=== PATIENT | female | born 1980 | race Caucasian/White ===

== ENCOUNTER → 2018-07-09 10:49 | Outpatient (CLI) | payer OTHER, SELFPAY | PROVIDERS: Visit Provider Physician Assistant | DX: R52 Pain, unspecified (principal) | CPT/HCPCS: 87086 ==

== ENCOUNTER → 2019-07-06 08:57 | Outpatient (CLI) | payer OTHER, SELFPAY | PROVIDERS: Visit Provider Physician Assistant | DX: N30.01 Acute cystitis with hematuria (principal) | CPT/HCPCS: 87077; 87086; 87147 ==

== ENCOUNTER → 2020-05-13 10:22 | Outpatient (CLI) | payer OTHER, SELFPAY ==
[2020-05-13 12:21] LABS: Add Manual Diff / Slide Review NO; Basophils Absolute Auto 0 /uL (0-100); Basophils Percent Auto 0.9 % (0-2); Eosinophils Absolute Auto 100 /uL (0-450); Eosinophils Percent Auto 2.7 % (2-4); Hematocrit 38.4 % (36-46); Hemoglobin 13.3 g/dL (12.0-16.0); Lymphocytes Absolute Auto 900 /uL (1100-4500); Lymphocytes Percent Auto 19.2 % (25-40); Mean Corpuscular HGB Conc 34.5 % (30-36); Mean Corpuscular Hemoglobin 30.4 PG (26-34); Mean Corpuscular Volume 88.1 fL (80-100); Monocytes Absolute Auto 400 /uL (0-900); Monocytes Percent Auto 9.3 % (3-14); Neutrophils Absolute Auto 3100 /uL (1500-7000); Neutrophils Percent Auto 67.9 % (50-75); Platelet Count 189 X10^3/uL (150-400); Red Blood Cell Count 4.36 X10^6/uL (4.0-5.2); Red Cell Distribution Width 14.5 % (11.6-14.8); White Blood Cell Count 4.6 X10^3/uL (4.5-11.0)
[2020-05-13 14:30] LABS: TSH w/ Reflex to FT4 0.74 uIU/mL (0.47-4.68)
[2020-05-13 14:50] LABS: Alanine Aminotransferase 13 IU/L (<35); Albumin 4.1 g/dL (3.5-5.0); Albumin Globulin Ratio 1.6 (1.0-2.8); Alkaline Phosphatase 46 U/L (38-126); Aspartate Aminotransferase 20 IU/L (14-36); BUN Creatinine Ratio 23.2 (6-22); Bilirubin Total 0.5 mg/dL (0.2-1.3); Blood Urea Nitrogen 16 mg/dL (7-17); Calcium 8.8 mg/dL (8.4-10.2); Carbon Dioxide 22 mmol/L (22-32); Chloride 104 mmol/L (98-107); Cholesterol 159 mg/dL (140-199); Estimated Glomerular Filt Rate > 60.0 mL/min (>60); Globulin 2.5 g/dL (1.7-4.1); Glucose 84 mg/dL (70-100); HDL Cholesterol 93 mg/dL (40-60); HEMOLYSIS < 15 (0-50); LDL Cholesterol Calculated 59 mg/dL (<100); Potassium 4.5 mmol/L (3.4-5.1); Sodium 135 mmol/L (137-145); Total Protein 6.6 g/dL (6.3-8.2); Triglycerides 37 mg/dL (35-150)
== END ==
PROVIDERS: PCP Family Medicine; Referring Provider Family Medicine; Visit Provider Family Medicine
DX: Z00.00 Encounter for general adult medical examination without abnormal findings (principal)
CPT/HCPCS: 36415; 80053; 80061; 84443; 85025

== ENCOUNTER → 2020-05-22 11:13 | Outpatient (CLI) | payer OTHER, SELFPAY ==
--- NOTE | 2020-05-22 11:14 | DI.US.S_ITS ---
PROCEDURE: US PELVIC COMPLETE INDICATIONS: EVALUATE UTERUS AND OVARIES TECHNIQUE: Real-time scanning was performed of the pelvic organs, with image documentation. Additional endovaginal scanning was necessary due to incomplete visualization of the adnexal and endometrial structures by transabdominal scanning. COMPARISON: None. FINDINGS: Transabdominal scanning: Limited scanning through the kidneys shows no hydronephrosis. No pathologic free abdominal or pelvic fluid. Endovaginal scanning: Uterus: Uterus is normal in size at 8.3 x 4.8 x 5.3 cm. The endometrium measures 6.7 mm in combined thickness. 3 intramural fibroids, largest measuring up to 3 cm Ovaries: Ovary is normal measuring 3.8 x 2.1 x 2.1 cm on the right and 2.8 x 2.1 x 2.4 cm on the left. Bilateral follicular cysts. IMPRESSION: 3 intramural fibroids, largest measuring up to 3 cm. Dictated by: Lito Tariq [facility] Interpreted: Delilah Orellana MD on 05/22/2020 at 13:29 Approved by: Delilah Orellana M.D. on 05/22/2020 at 17:44
== END ==
PROVIDERS: PCP Family Medicine; Referring Provider Obstetrics & Gynecology; Visit Provider Obstetrics & Gynecology
DX: N94.6 Dysmenorrhea, unspecified (principal); D25.1 Intramural leiomyoma of uterus; N83.02 Follicular cyst of left ovary; N83.01 Follicular cyst of right ovary
CPT/HCPCS: 76830; 76856

== ENCOUNTER → 2020-06-16 13:33 | Outpatient (CLI) | payer OTHER, SELFPAY ==
[2020-06-18 19:13] LABS: COVID19 Sendout Not Detected (Not Detect)
== END ==
PROVIDERS: PCP Family Medicine; Visit Provider Physician Assistant
DX: Z01.818 Encounter for other preprocedural examination (principal)
CPT/HCPCS: 87635

== ENCOUNTER 2020-06-19 07:59 | Day surgery (SDC) | payer OTHER, SELFPAY ==
[2020-06-19] VITALS (8 sets, daily range): BP systolic 111–122; BP diastolic 67–78; PULSE 60–75; RESP 10–16; TEMP 36.5–36.8; O2SAT 99–100
--- NOTE | 2020-06-19 | PATH_ITS ---
[facility] Accession Number: [id number] . 01 Material submitted: . cervix - CERVICAL CONE . 01 Clinical history: . CERVICAL CONE; STITCH AT 12 O'CLOCK . 02 Diagnosis: Cervix, Cone Excision: Focal low-grade squamous intraepithelial neoplasia (TOÑITO-1). Changes consistent with prior procedure are also present. Active inflammation. Margins are free of intraepithelial neoplasia. No evidence of malignancy. [facility] 06/21/2020 0938 Local . 02 Electronically signed: . Shereen Raya MD, Pathologist NPI- [id number] . 01 Gross description: . Specimen A is received in formalin, labeled with patient identification and cervical cone; stitch at 12 o'clock. It consists of a 2.3 x 1.2 x 0.4 cm C-shaped and partial cervical cone with a black suture indicating 12 o'clock (per surgeon). The specimen consists of 12-9-6 o'clock. The ectocervical mucosa is pink-salinas, dull, and focally rough. The endocervical mucosa is inked orange, and the deep surface is inked blue. Sectioning reveals heterogeneously yellow to light brown cut surfaces. The entire specimen is submitted in four cassettes. . Summary of Sections: A1-A2 - 12 o'clock to 9 o'clock, three pieces each. A3-A4 - 9 o'clock to 6 o'clock, three pieces each. ([id number]) /[facility] 06/20/2020 1552 Local . 02 Pathologist provided ICD-10: N87.0 . 02 CPT . 782829 Performed at: 01 [facility] [address] [place] [address] [address], [place], [place] [id number] MD Veto Bae MD Phone: [phone] Performed at: 02 [facility] [id number] [place] [id number] MD Shereen Raya MD Phone: [phone]
[2020-06-19] MEDS: LACTATED RINGERS 1,000 ML 42 ML IV (08:30)
--- NOTE | 2020-06-19 08:36 | SUR.PREOP ---
pt states there is no way she is .
--- NOTE | 2020-06-19 09:34 | P.HPOB_ITS ---
History of Present Illness History of Present Illness Narrative: Michelle Del Toro is a 39 year old female with at least TOÑITO 1 of the cervix, but 1 area suspicious for high-grade ELIGIO. She is here for a LEEP cone biopsy of the cervix. [facility] Medical History (Updated 05/23/20 @ 22:15 by Paige Estrella) Anxiety (Chronic ~2018) Bee sting allergy (Acute) Chicken pox (Resolved ~1984) Depression (Chronic ~2018) Dysmenorrhea (Chronic) Encounter for well adult exam without abnormal findings (Acute) Heavy menstrual period (Chronic) Surgical History (Updated 05/23/20 @ 22:15 by Paige Estrella) Anesthesia (Resolved) [place] teeth extracted (Resolved ~2015) Social History household members: significant other Smoking Status: Never smoker second hand exposure: Yes (Childhood) alcohol intake: current Meds Home Medications and Allergies Home Medications Medication Instructions Recorded Confirmed Type epinephrine 0.3 mg/0.3 mL 0.3 mg IM Q5-15M PRN #2 each 05/10/20 06/15/20 Rx injection, auto-injector levonorgestrel-ethinyl estradiol 1 tab PO DAILY #84 tab 05/24/20 06/19/20 Rx 0.1 mg-20 mcg tablet Allergies Allergy/AdvReac Type Severity Reaction Status Date / Time No Known Drug Allergies Allergy Verified 06/19/20 08:27 Exam Vital Signs (past 8 hours): - 06/19/20 08:10 Temperature 97.7 F Pulse Rate 75 Respiratory Rate 16 Blood Pressure 116/68 Pulse Oximetry 99 Oxygen Delivery Method Room Air Narrative Exam Narrative: HEENT: No thyromegaly, no anterior cervical or supraclavicular lymphadenopathy. Lungs:Clear to auscultation bilaterally, no wheezes. Cardiovascular: Regular rate and rhythm, no murmurs, rubs, or gallops. Abdomen: No scars. No hepatosplenomegaly. No masses palpable. External genitalia: Normal Vagina: Normal Cervix: Normal Bimanual exam: 6 Week size uterus. Mobile. Rectal: No masses. Assessment & Plan Assessment & Plan narrative: Assessment: 39-year-old 0 with at least TOÑITO 1 of the cervix, but with 1 area suspicious for high-grade ELIGIO. Desires contraceptive management with a Kyleena IUD Plan: LEEP cone biopsy of the cervix Kyleena IUD insertion The risks, benefits, and alternatives to the procedure were explained to the patient. The risks including bleeding, infection, and uterine perforation. She understands these risks and agrees to proceed. A full par Q was held and consent form was signed. COVID-19 COVID-19 status: Negative Result date/Date tested (Pos, Neg/Pending): 06/16/20 Time Spent With Patient Time with patient: 15-24 minutes
--- NOTE | 2020-06-19 09:38 | PM.PREOP ---
Pre-operative Note COVID-19 COVID-19 status: Negative Result date/Date tested (Pos, Neg/Pending): 06/16/20 Interval Note History & Physical reviewed/Exam performed by Physician: Yes Changes to H&P: No
--- NOTE | 2020-06-19 10:21 | SUR.OPER ---
Lithotomy on padded OR bed, head on pillow, arms secured on padded arm boards at <90 degrees abduction. Legs secured in padded yellow fins stirrups.
--- NOTE | 2020-06-19 11:03 | SUR.PHASEI ---
1100 Pt very sleepy, aroused spontaneously. Denies pain/nausea. Dr. Kang spoke to the patient [id number] Reported off to Willem Biswas RN. Stable, has declined PO intake. Denies pain/nausea
--- NOTE | 2020-06-19 15:53 | P.OP_ITS ---
Operative Date/Time/Diagnoses Date of procedure: 06/19/20 Time of procedure: 10:45 Pre-op diagnosis: TOÑITO 1, cannot rule out high-grade dysplasia Desires IUD for contraceptive management Post-op diagnosis: same Procedure & Clinicians Procedure: Procedures Operation Date: 06/19/20 09:15 Actual Procedures Side Surgeon p LEEP Procedure, cone bx of cervix, kleena IUD insertion Chrissy Kang MD Indications: TOÑITO 1, cannot rule out high-grade dysplasia of the cervix Desires Kyleena IUD for contraceptive management Surgeon: Chrissy Kang Anesthesia Type: General (LMA) Operative Notes Findings: Lugol's light area from 9-11 o'clock, extending into the endocervical canal Closure Type: not applicable Specimen(s): other (Cone biopsy of the cervix with stitch at 12 o'clock) Applied: catheter (In and out) Estimated blood loss (mL): 5 Blood products transfused: none Procedure in detail: After informed consent was obtained, the patient was taken to the operating room where she was placed in the dorsal supine position. After adequate LMA general anesthesia was achieved, she was placed in the dorsal lithotomy position, and prepped and draped in the usual sterile fashion. A time-out was performed. A plastic coated speculum attached to suction was placed into the vagina. A plastic coated single-tooth tenaculum was applied to the anterior lip of the cervix. The cervix was coated with Lugol solution. T here was a Lugol's light area extending from 9-11 o'clock, and extended into the endocervical canal. Using a 1.5 cm loop with settings at 60 w cut, 40 w cautery, a LEEP cone biopsy was performed including the Lugol's light areas. The Bovie was used for hemostasis at the base of the cone. An attempt was made to place the Kyleena IUD, but the cervical os was quite tight. Using the Hegar dilators to the 6., the cervical canal was dilated. The uterus sounded to 6 cm. The Kyleena IUD was placed without difficulty, and the strings were cut to 1.5 cm. The single-tooth tenaculum was removed from the anterior lip of the cervix. The plastic coated bivalve speculum was removed from the vagina. Sponge, lap, and instrument counts were correct x2. The patient tolerated the procedure well, and was taken to PACU in stable condition. Complications: none Post-operative Condition: stable Disposition: PACU Plan for aftercare: Home after recovery
== END 2020-06-19 11:47 | disposition home or self-care (01) ==
PROVIDERS: PCP Family Medicine; Referring Provider Obstetrics & Gynecology; Visit Provider Obstetrics & Gynecology
PROC: 0UBC7ZZ Excision of Cervix, Via Natural or Artificial Opening (ICD-10-PCS; CPT 57522; principal; 2020-06-19 09:15)
DX: N87.0 Mild cervical dysplasia (principal); Z30.430 Encounter for insertion of intrauterine contraceptive device
CPT/HCPCS: 57522; 58300; J1100; J1885; J2250; J2405; J2704; J3010; J7296

== ENCOUNTER → 2020-10-20 10:50 | Outpatient (CLI) | payer OTHER, SELFPAY ==
--- NOTE | 2020-10-20 10:52 | DI.MG.S_ITS ---
BILATERAL DIGITAL SCREENING MAMMOGRAM 3D/2D WITH CAD: 10/20/2020 CLINICAL: Routine screening. Baseline exam. No prior exams were available for comparison. The tissue of both breasts is extremely dense, which lowers the sensitivity of mammography. Current study was also evaluated with a Computer Aided Detection (CAD) system. There are benign calcifications in both breasts. No significant masses, calcifications, or other findings are seen in either breast. IMPRESSION: BENIGN There is no mammographic evidence of malignancy. A 1 year screening mammogram is recommended. This exam was interpreted at Station ID: [id number]. NOTE: For mammograms, a report in lay terms will be sent to the patient. Approximately 15% of breast malignancies will not be visualized mammographically. In the management of a palpable breast mass, a negative mammogram must not discourage biopsy of a clinically suspicious lesion. Electronically Signed By: Damián huoston/booker:10/24/2020 09:16:44 letter sent: Normal Exam ACR BI-RADS Category 2: Benign Finding(s) 3342F
== END ==
PROVIDERS: PCP Family Medicine; Referring Provider Family Medicine; Visit Provider Family Medicine
DX: Z12.31 Encounter for screening mammogram for malignant neoplasm of breast (principal)
CPT/HCPCS: 77063; 77067

== ENCOUNTER → 2021-10-30 15:03 | Outpatient (CLI) | payer OTHER, SELFPAY ==
--- NOTE | 2021-10-30 15:05 | DI.MG.S_ITS ---
BILATERAL DIGITAL SCREENING MAMMOGRAM 3D/2D WITH CAD: 10/30/2021 CLINICAL: Routine screening. Comparison is made to exam dated: 10/20/2020 [facility]. The tissue of both breasts is extremely dense, which lowers the sensitivity of mammography. Current study was also evaluated with a Computer Aided Detection (CAD) system. There are benign calcifications in both breasts. No significant masses, calcifications, or other findings are seen in either breast. There has been no significant interval change. IMPRESSION: BENIGN There is no mammographic evidence of malignancy. A 1 year screening mammogram is recommended. This exam was interpreted at Station ID: [id number]. NOTE: For mammograms, a report in lay terms will be sent to the patient. Approximately 15% of breast malignancies will not be visualized mammographically. In the management of a palpable breast mass, a negative mammogram must not discourage biopsy of a clinically suspicious lesion. Electronically Signed By: Gabriele patino/booker:10/30/2021 16:37:47 letter sent: Normal Exam ACR BI-RADS Category 2: Benign Finding(s) 3342F
== END ==
PROVIDERS: PCP Family Medicine; Referring Provider Family Medicine; Visit Provider Family Medicine
DX: Z12.31 Encounter for screening mammogram for malignant neoplasm of breast (principal)
CPT/HCPCS: 77063; 77067

== ENCOUNTER → 2022-01-03 11:36 | Outpatient (CLI) | payer OTHER, SELFPAY ==
--- NOTE | 2022-01-03 11:37 | DI.RAD.S_ITS ---
PROCEDURE: XR ANKLE RT MIN 3V INDICATIONS: eval RIGHT ankle pain x 2 weeks/pls R/O fracture TECHNIQUE: Three views of the ankle were acquired. COMPARISON: None. FINDINGS: Bones: No fractures or dislocations. Ankle mortise is normally aligned. No suspicious bony lesions. Pes equinus deformities seen. Soft tissues: No tibiotalar joint effusion. Achilles tendon appears normal. IMPRESSION: Intact right ankle without fracture or suspicious lesion. Dictated by: Nory Valerio M.D. on 01/03/2022 at 12:01 Approved by: Nory Valerio M.D. on 01/03/2022 at 12:02
== END ==
PROVIDERS: PCP Family Medicine; Referring Provider Registered Nurse Diabetes Educator; Visit Provider Registered Nurse Diabetes Educator
DX: M25.571 Pain in right ankle and joints of right foot (principal)
CPT/HCPCS: 73610

== ENCOUNTER → 2022-11-12 11:11 | Outpatient (CLI) | payer OTHER, SELFPAY ==
--- NOTE | 2022-11-12 | DI.MG.S_ITS ---
BILATERAL DIGITAL SCREENING MAMMOGRAM 3D/2D WITH CAD: 11/12/2022 CLINICAL: Routine screening. Comparison is made to exams dated: 10/30/2021 mammogram and 10/20/2020 mammogram - [facility]. Both breasts are extremely dense, which lowers the sensitivity of mammography (category d />75% glandular tissue). Current study was also evaluated with a Computer Aided Detection (CAD) system. There are benign calcifications in both breasts. No significant masses, calcifications, or other findings are seen in either breast. There has been no significant interval change. IMPRESSION: BENIGN There is no mammographic evidence of malignancy. A 1 year screening mammogram is recommended. Based on Tyrer-Cuzick model (a risk assessment model), the patient's lifetime risk is 21.6% and her 10 year risk is 3.9%. If a patient has an elevated risk, a more comprehensive evaluation should be considered and/or a referral to a genetic counselor. The [place] [employer], [employer], and NCCN Guidelines advise the consideration of Breast MRI as an adjunct to screening mammography in patients whose Lifetime risk to develop breast cancer is 20% or higher. This exam was interpreted at Station ID: [id number]. NOTE: For mammograms, a report in lay terms will be sent to the patient. Approximately 15% of breast malignancies will not be visualized mammographically. In the management of a palpable breast mass, a negative mammogram must not discourage biopsy of a clinically suspicious lesion. Electronically Signed By: Damián houston/booker:11/12/2022 12:13:10 letter sent: Normal Exam ACR BI-RADS Category 2: Benign Finding(s) 3342F
== END ==
PROVIDERS: PCP Family Medicine; Referring Provider Family Medicine; Visit Provider Family Medicine
DX: Z12.31 Encounter for screening mammogram for malignant neoplasm of breast (principal)
CPT/HCPCS: 77063; 77067

== ENCOUNTER → 2022-11-20 10:26 | Outpatient (CLI) | payer OTHER, SELFPAY ==
[2022-11-20 11:14] LABS: Add Manual Diff / Slide Review NO; Basophils Absolute Auto 100 /uL (0-100); Eosinophils Absolute Auto 100 /uL (0-450); Eosinophils Percent Auto 1.9 % (2-4); Hematocrit 39.9 % (36-46); Hemoglobin 13.7 g/dL (12.0-16.0); Lymphocytes Absolute Auto 1000 /uL (1100-4500); Lymphocytes Percent Auto 16.7 % (25-40); Mean Corpuscular HGB Conc 34.4 % (30-36); Mean Corpuscular Hemoglobin 31.6 PG (26-34); Mean Corpuscular Volume 91.7 fL (80-100); Monocytes Absolute Auto 500 /uL (0-900); Neutrophils Absolute Auto 4400 /uL (1500-7000); Neutrophils Percent Auto 72.4 % (50-75); Platelet Count 204 X10^3/uL (150-400); Red Blood Cell Count 4.35 X10^6/uL (4.0-5.2); Red Cell Distribution Width 13.4 % (11.6-14.8); White Blood Cell Count 6.1 X10^3/uL (4.5-11.0)
[2022-11-20 11:34] LABS: Alanine Aminotransferase 22 IU/L (<35); Albumin 4.4 g/dL (3.5-5.0); Albumin Globulin Ratio 1.4 (1.0-2.8); Alkaline Phosphatase 61 U/L (38-126); Aspartate Aminotransferase 30 IU/L (14-36); Bilirubin Total 0.7 mg/dL (0.2-1.3); Blood Urea Nitrogen 14 mg/dL (7-17); Calcium 8.5 mg/dL (8.4-10.2); Carbon Dioxide 27 mmol/L (22-32); Chloride 99 mmol/L (98-107); Estimated Glomerular Filt Rate > 60 mL/min (>60); Globulin 3.1 g/dL (1.7-4.1); Glucose 86 mg/dL (70-100); HEMOLYSIS < 15 (0-50); Sodium 135 mmol/L (137-145); Total Protein 7.5 g/dL (6.3-8.2)
[2022-11-20 12:04] LABS: TSH w/ Reflex to FT4 1.12 uIU/mL (0.47-4.68)
== END ==
PROVIDERS: PCP Family Medicine; Referring Provider Family Medicine; Visit Provider Family Medicine
DX: Z13.9 Encounter for screening, unspecified (principal); L65.9 Nonscarring hair loss, unspecified
CPT/HCPCS: 36415; 80053; 84443; 85025

== ENCOUNTER → 2024-09-10 16:22 | Outpatient (CLI) | payer OTHER, SELFPAY ==
--- NOTE | 2024-09-10 16:23 | DI.MG.S_ITS ---
BILATERAL DIGITAL SCREENING MAMMOGRAM 3D/2D WITH CAD: 09/10/2024 CLINICAL: Routine screening. Comparison is made to exams dated: 11/12/2022 mammogram, 10/30/2021 mammogram, and 10/20/2020 mammogram - [facility]. The breasts are heterogeneously dense, which may obscure small masses (category c / 51-75% glandular tissue). Current study was also evaluated with a Computer Aided Detection (CAD) system. No significant masses, calcifications, or other findings are seen in either breast. There has been no significant interval change. IMPRESSION: NEGATIVE There is no mammographic evidence of malignancy. A 1 year screening mammogram is recommended. Based on the Tyrer Cuzick model (a risk assessment model) the patient's lifetime risk is 14.6% and her 10 year risk is 2.9%. According to the ACR, ACS, and NCCN guidelines, an annual breast MRI exam along with mammogram is recommended if the patient's lifetime risk is 20% or greater. This exam was interpreted at Station ID: [id number]. NOTE: For mammograms, a report in lay terms will be sent to the patient. Approximately 15% of breast malignancies will not be visualized mammographically. In the management of a palpable breast mass, a negative mammogram must not discourage biopsy of a clinically suspicious lesion. Electronically Signed By: Suma Cyr M.D., Ph.D. deejay/booker:09/10/2024 23:05:38 letter sent: Normal Exam ACR BI-RADS Category 1: Negative
== END ==
PROVIDERS: PCP Family Medicine; Referring Provider Family Medicine; Visit Provider Family Medicine
DX: Z12.31 Encounter for screening mammogram for malignant neoplasm of breast (principal); R92.333 Mammographic heterogeneous density, bilateral breasts
CPT/HCPCS: 77063; 77067

== ENCOUNTER 2024-11-10 09:12 | Day surgery (SDC) | payer OTHER, SELFPAY ==
[2024-11-10 10:08] VITALS: BP 137/69; PULSE 55; RESP 16; TEMP 36.6; O2SAT 98
--- NOTE | 2024-11-10 10:53 | P.HP_ITS ---
History of Present Illness History of Present Illness Date Patient Seen: 11/10/24 Time Patient Seen: 10:53 Chief complaint: Screening Colonoscopy Narrative: 44-year-old white female, otherwise healthy presents for initial screening. No changes in bowel habits, blood in the stool. No family history of colon cancer, Crohn's disease or ulcerative colitis. [facility] Medical History (Updated 11/10/24 @ 10:54 by Austyn Abdul MD) Colon cancer screening Right hamstring muscle strain Female pattern alopecia Well adult exam IUD (intrauterine device) in place Depression (~2018) Anxiety (~2018) Chicken pox (~1984) Heavy menstrual period Bee sting allergy Dysmenorrhea Surgical History Anesthesia [place] teeth extracted (~2015) Social History household members: significant other Smoking Status: Never smoker second hand exposure: Yes (Childhood) alcohol intake: current Meds Home Medications and Allergies Home Medications Medication Instructions Recorded Confirmed Type levonorgestrel 17.5 mcg/24 hr (up See Rx Instructions .Route .COMPLEX 10/30/20 11/10/24 History to 5 yrs) 19.5mg intrauterine device (Kyleena) epinephrine 0.3 mg/0.3 mL 0.3 mg (0.3 mL) IM Q5-15M PRN 07/03/21 11/10/24 Rx injection, auto-injector (EpiPen anaphylaxis #2 ea 2-Rene) sodium,potassium,mag sulfates 17.5 See Rx Instructions PO .COMPLEX 10/11/24 11/10/24 Rx gram-3.13 gram-1.6 gram oral soln #354 mL (Suprep Bowel Prep Kit) Allergies Allergy/AdvReac Type Severity Reaction Status Date / Time No Known Drug Allergies Allergy Verified 11/10/24 10:03 Review of Systems Review of Systems ROS: Yes All systems reviewed with the patient and are negative except as otherwise documented Exam Vital Signs (past 8 hours): - 11/10/24 10:08 Temperature 97.8 F Pulse Rate 55 L Respiratory Rate 16 Blood Pressure 137/69 Pulse Oximetry 98 Oxygen Delivery Method Room Air Oxygen Delivery Method Room Air Narrative Exam Narrative: Gen: NAD, sitting comfortably in bed, appears well HEENT: Sclera are anicteric, head is normocephalic and atraumatic, trachea is midline. CV: RRR, no JVD Resp: clear to auscultation bilaterally, equal chest wall movement bilaterally Abd: soft, nontender, normoactive bowel sounds Ext: no edema, full range of motion Neuro: Cranial nerves II-XII grossly intact, no focal deficits Skin: No erythema or ecchymosis Assessment & Plan Assessment and plan (1) Colon cancer screening: Status: Acute Assessment & Plan narrative: Patient presents for initial screening colonoscopy Risks, benefits, alternatives to colonoscopy explained, including but not limited to bowel perforation or other serious complication requiring surgery at less than 1 in 5000 colonoscopies, abdominal pain, cramping or bleeding and less than 1% of colonoscopies, and the chances that we find a diagnosis that would require further intervention of about 2%. Patient agrees to proceed. Time-Based Coding :: [TOTAL MINUTES] spent with patient and on the chart (including review of chart, obtaining history, exam, reviewing outside data, placing orders, documenting exam and treatment plan, and counseling patient) on [DATE].
--- NOTE | 2024-11-10 11:13 | PM.OP.COLON ---
Operative Date/Time/Diagnoses Date of procedure: 11/10/24 Time of procedure: 11:13 Pre-op diagnosis: Colon screening Post-op diagnosis: same Procedure & Clinicians Study performed: Colonoscopy Same procedure as scheduled: Yes Indications: Routine screening Surgeon: Austyn Abdul Procedure Notes SCOAP/Timeout: Performed Procedure in detail: Time-out was performed. Mac was induced. Patient was placed in left lateral decubitus position. The perineum was inspected without any gross abnormality. Lubricated pediatric colonoscope was inserted and advanced to the cecum. The terminal ileum was intubated. The colonoscope was withdrawn slowly inspecting the circumference of the colon. Very small polyps may have been missed, prep quality was adequate. Retroflexed view of the rectum showed small, non prolapsed nonbleeding internal hemorrhoids. The scope was withdrawn the patient was taken to PACU in good condition. Scope withdrawal time: 6 Sedation minutes: 11 Findings: internal hemorrhoids Post-procedure Recommendations: Colonoscopy in 10 years Plan for aftercare: Home Follow up: as needed Disposition: PACU
[2024-11-10 11:15] VITALS: BP 108/52; PULSE 59; RESP 15; TEMP 37.1; O2SAT 100
[2024-11-10 11:20] VITALS: BP 109/62; PULSE 50; RESP 12; O2SAT 97
[2024-11-10 11:25] VITALS: BP 106/60; PULSE 52; RESP 16; TEMP 36.3; O2SAT 97
== END 2024-11-10 11:47 | disposition home or self-care (01) ==
PROVIDERS: PCP Family Medicine; Referring Provider Surgery; Visit Provider Surgery
PROC: 0DJD8ZZ Inspection of Lower Intestinal Tract, Via Natural or Artificial Opening Endoscopic (ICD-10-PCS; CPT 45378; principal; 2024-11-10 10:30)
DX: Z12.11 Encounter for screening for malignant neoplasm of colon (principal); K64.8 Other hemorrhoids
CPT/HCPCS: 45378; J2704

== ENCOUNTER → 2025-09-13 16:15 | Outpatient (CLI) | payer OTHER, SELFPAY ==
--- NOTE | 2025-09-13 16:16 | DI.MG.S_ITS ---
MM screening mammo BI: 09/13/2025. BI-RADS: 1 CLINICAL: 45-year old female for bilateral screening mammogram. Tyrer-Cuzick lifetime risk of 13.6%. No personal or first-degree family history of breast cancer. PRIOR EXAMS 09/10/2024, 11/12/2022, 10/30/2021, 10/20/2020. MAMMOGRAPHY TECHNIQUE: 2D and 3D (tomosynthesis) digital mammographic views obtained, with additional images as needed for full coverage. Current study was also evaluated with a Computer Aided Detection (CAD) system. DENSITY D. The breasts are extremely dense, which lowers the sensitivity of mammography. MAMMOGRAPHY FINDINGS Bilateral: No suspicious mass, asymmetry, microcalcification, or other abnormality seen. IMPRESSION: * No evidence of malignancy. RECOMMENDATIONS Bilateral * Annual screening mammography. OVERALL ASSESSMENT CATEGORY BI-RADS-1: Negative. The [employer] [place] recommends annual screening mammography beginning at age 40 for women with average risk of breast cancer. ELECTRONICALLY SIGNED: Suma Cyr M.D. on 09/16/2025 at 04:30:36 PM PT Interpreting Station ID: [id number]
== END ==
LOC: MAMMO 16:16
PROVIDERS: PCP Family Medicine; Referring Provider Family Medicine; Visit Provider Family Medicine
DX: Z12.31 Encounter for screening mammogram for malignant neoplasm of breast (principal); R92.30 Dense breasts, unspecified
CPT/HCPCS: 77063; 77067